=== PATIENT | male | born 1950 | race Two or more races ===

== ENCOUNTER 2019-09-19 13:13 | Inpatient (IN) | payer MEDICARE, OTHER ==
[~2019-09-19] VITALS: Ht 179.1 cm; Wt 99.8 kg
[2019-09-19 16:00] VITALS: BP 158/80
[2019-09-19] MEDS ORDERED: FURO20TA4 PO (16:00)
[2019-09-19] MEDS ORDERED: ISOS30TA6 PO (16:00)
[2019-09-19] MEDS ORDERED: GABA-532 PO (16:00)
[2019-09-19] MEDS ORDERED: ATOR80TA PO (16:00)
[2019-09-19] MEDS ORDERED: FLUT1BLS6 INH (16:00)
[2019-09-19] MEDS ORDERED: METO25TA4 PO (16:00)
[2019-09-19] MEDS ORDERED: ALBU18HF2 INH (16:00)
[2019-09-19] MEDS ORDERED: HYDR-4354 PO (16:00)
[2019-09-19] MEDS ORDERED: LISI-607 PO (16:00)
[2019-09-19] MEDS ORDERED: ASPI-1152 PO (16:00)
[2019-09-19] MEDS ORDERED: MAG HYDROX/AL HYDROX/SIMETH 30 ML UDC PO PRN (19:00)
[2019-09-19] MEDS ORDERED: Z GUARD REMEDY 2 OZ OINT TP PRN (19:00)
[2019-09-19] MEDS ORDERED: MAGNESIUM HYDROXIDE 30 ML UDC PO PRN (19:00)
[2019-09-19] MEDS ORDERED: ACETAMINOPHEN 325 MG TABLET PO PRN (19:00)
[2019-09-19] MEDS ORDERED: LORAZEPAM INJ 2 MG/ML VIAL IV PRN (19:00)
[2019-09-19] MEDS ORDERED: CLONIDINE HCL 0.1 MG TABLET PO PRN (19:00)
[2019-09-19] MEDS ORDERED: ONDANSETRON HCL/PF 4 MG/2 ML VIAL IVP PRN (19:00)
--- NOTE | 2019-09-19 19:05 | NUR ---
DISBURSING AGENT OPENING NOTES RECEIVED PATIENT IN BED NOTED RESTLESS, AGITATED, ALERT AND ORIENTED X 4, RESPIRATIONS EVEN AND UNLABORED WITH EQUAL RISE AND FALL OF CHEST, ORIENTED TO STAFF AND CALL LIGHT AND KEPT WITHIN REACH SITE TO LEFT HAND #22 G INTACT AND PATENT, NO REDNESS, NO INFILTRATION PRESENT, CURRENTLY SITTING IN CHAIR WATCHING HIS LAPTOP DISCUSSED PLAN OF CARE, ALL NEEDS ATTENDED AT THIS TIME, WILL CONTINUE TO MONITOR.
[2019-09-19 19:15] VITALS: BP 158/80
--- NOTE | 2019-09-19 19:30 | NUR ---
software development intern notes patient requesting for norco 10/325mg, at this norco had been held made patient aware, got very upset threatened states " im out of this place". patient is here for SI. made hospitalist leonard zee aware whom said patient is not allowed leave, if so call crisis team for hold placement. not allowed for norco prescription med seeker. needs medical clearance. per MD not allowed to leave AMA.
[2019-09-19 19:42] LABS: CALCIUM, SERUM 9.7 mg/dL (8.5-10.1); CREATININE 1.1 mg/dL (0.6-1.3); POTASSIUM 4.6 mmol/L (3.5-5.1)
[2019-09-19 19:48] LABS: ALBUMIN 3.6 g/dL (3.4-5.0); BILIRUBIN,TOTAL 0.4 mg/dL (0.2-1.0); MAGNESIUM 2.3 mg/dL (1.8-2.4); PHOSPHORUS 3.5 mg/dL (2.5-4.9); TOTAL PROTEIN, SERUM 7.4 g/dL (6.4-8.2)
--- NOTE | 2019-09-19 19:50 | NUR ---
BED OPERATOR NOTES CALLED CRISIS TEAM [facility]AL TO NOTIFY OF CONSULT.
[2019-09-19 20:00] VITALS: BP 147/75
[2019-09-19 20:16] LABS: BASOPHILS # (AUTO) 0.1 /CMM (0.0-0.2); BASOPHILS % (AUTO) 0.8 % (0.0-2.0); EOSINOPHILS % (AUTO) 4.4 % (0.0-6.0); HEMATOCRIT 45 % (39-51); HEMOGLOBIN 14.6 g/dL (13.5-17.5); LYMPHOCYTES # (AUTO) 2.8 /CMM (0.8-4.8); LYMPHOCYTES % (AUTO) 27.6 % (20.0-44.0); MEAN CORPUSCULAR HGB CONC 33 g/dl (31.0-36.0); MEAN CORPUSCULAR VOLUME 92 fL (80-96); MONOCYTES # (AUTO) 0.8 /CMM (0.1-1.30); MONOCYTES % (AUTO) 8.2 % (2.0-12.0); PLATELET COUNT (AUTO) 233 /CMM (150-450); RED BLOOD CELL COUNT(AUTO) 4.84 MIL/uL (4.5-6.0); WHITE BLOOD COUNT (AUTO) 10.2 K/uL (4.3-11.0)
--- NOTE | 2019-09-19 20:20 | NUR ---
ACID CONDITIONING WORKER NOTES CRYSTAL CRISIS TEAM COMMUNITY SERVICE PATROL OFFICER AT BEDSIDE.
--- NOTE | 2019-09-19 21:05 | NUR ---
risk intern notes patient strongly insisting he is in generalized pain ranging from 7-8 out of 10. noted restless and pacing in room throwing belongings. strongly requesting norco or threatening to leave. notified dr. gutierrez. with new order for norco 5/325mg q8hr prn, patient made aware and agreed. ekg done as ordered notified dr. gutierrez no new orders at this time.
--- NOTE | 2019-09-19 21:30 | NUR ---
corner brace block machine operator notes per aysha rn crisis program evaluator patient will need psych consult
--- NOTE | 2019-09-19 21:30 | NUR ---
yarn sorter notes patient was placed on a 5150 hold by crisis team aysha. start 09/19/19 at 2130 to end 09/22/19 at 2130 patient is aware. q 15 mins rendered, sitter at bedside.
[2019-09-19] MEDS: HYDROCODONE/APAP 5/325MG 1 EACH TABLET PO PRN (22:00)
[2019-09-19] MEDS: ATORVASTATIN 40 MG TABLET PO SCH (22:00)
--- NOTE | 2019-09-19 23:19 | NUR ---
rn private duty notes patient agreed to do mrsa swab , swab done placed in frig.
[2019-09-20 03:26] LABS: CALCIUM, SERUM 9.6 mg/dL (8.5-10.1); CARBON DIOXIDE 29 mmol/L (21-32); CHLORIDE 105 mmol/L (98-107); GLUCOSE 120 mg/dL (74-106); MAGNESIUM 2.4 mg/dL (1.8-2.4); PHOSPHORUS 3.8 mg/dL (2.5-4.9); POTASSIUM 4.7 mmol/L (3.5-5.1); SODIUM SERUM 139 mmol/L (136-145); UREA NITROGEN, BLOOD 22 mg/dL (7-18)
[2019-09-20 03:38] LABS: CHOLESTEROL 147 mg/dL (<200); HDL CHOLESTEROL 26 mg/dL (40-60); LDL 90 mg/dL (0-99); THYROID STIMULATING HORMONE < 0.007 uIU/mL (0.358-3.74); TRIGLYCERIDES 244 mg/dL (30-150)
[2019-09-20 03:56] LABS: BASOPHILS # (AUTO) 0.1 /CMM (0.0-0.2); BASOPHILS % (AUTO) 0.9 % (0.0-2.0); EOSINOPHILS % (AUTO) 4.7 % (0.0-6.0); HEMATOCRIT 43 % (39-51); HEMOGLOBIN 14.1 g/dL (13.5-17.5); LYMPHOCYTES # (AUTO) 2.8 /CMM (0.8-4.8); LYMPHOCYTES % (AUTO) 30.8 % (20.0-44.0); MEAN CORPUSCULAR HGB CONC 33 g/dl (31.0-36.0); MEAN CORPUSCULAR VOLUME 92 fL (80-96); MONOCYTES # (AUTO) 0.9 /CMM (0.1-1.30); MONOCYTES % (AUTO) 9.3 % (2.0-12.0); NEUTROPHILS % (AUTO) 54.3 % (43.0-81.0); PLATELET COUNT (AUTO) 199 /CMM (150-450); RED BLOOD CELL COUNT(AUTO) 4.67 MIL/uL (4.5-6.0); WHITE BLOOD COUNT (AUTO) 9.1 K/uL (4.3-11.0)
[2019-09-20 04:15] VITALS: BP 158/80
--- NOTE | 2019-09-20 06:47 | NUR ---
AUTOMOTIVE INTERNET SALES CONSULTANT CLOSING NOTES PATIENT IN BED NOTED SLEEPING EASILY AROUSABLE, ALERT AND ORIENTED X 4, HYPERVERBAL , EASILY AGITATED. RESPIRATIONS EVEN AND UNLABORED WITH EQUAL RISE AND FALL OF CHEST, CALL LIGHT KEPT WITHIN REACH SITE TO LEFT HAND #22 G INTACT AND PATENT, NO REDNESS, NO INFILTRATION PRESENT, DISCUSSED PLAN OF CARE UNDERSTANDS HE IS ON A 5150 HOLD, ALL NEEDS ATTENDED AT THIS TIME AND THROUGHOUT THE SHIFT, WILL CONTINUE TO MONITOR AND ENDORSE TO NEXT SHIFT.ON CARDIAC TELE MONITOR 73 VPACING, REMAINS COMFORTABLE.
--- NOTE | 2019-09-20 07:57 | NUR ---
ABAP DEVELOPER OPENING NOTE PATIENT IN BED RESTING COMFORTABLY, BUT EASILY AGITATED WHEN SPOKEN TO. PATIENT IN NO ACUTE DISTRESS. NO SOB NOTED. PATIENT BREATHING IS EVEN AND UNLABORED. PATIENT RESPONSIVE TO VERBAL AND TACTILE STIMULI. PATIENT ON CARDIAC MONITORING READING VPACING HR 69. SAFETY PRECAUTIONS IN PLACE. PATIENT BED IS LOCKED AND IN LOWEST POSITION. CALL LIGHT WITHIN REACH. WILL CONTINUE TO MONITOR.
[2019-09-20 08:00] VITALS: BP 168/70
[2019-09-20] MEDS: FUROSEMIDE 20 MG TABLET PO SCH (08:32)
[2019-09-20] MEDS: ISOSORBIDE MONONITRATE (30MG) 30 MG TAB.SR.24H PO SCH (08:32)
[2019-09-20] MEDS: PANTOPRAZOLE 40 MG TABLET.DR PO SCH (08:33)
[2019-09-20] MEDS: ASPIRIN EC 81 MG TABLET.DR PO SCH (08:33)
[2019-09-20] MEDS: LISINOPRIL (5MG) 5 MG TABLET PO SCH (08:33)
[2019-09-20] MEDS: GABAPENTIN 100 MG CAPSULE PO SCH ×3 (08:33→17:24)
[2019-09-20] MEDS ORDERED: METOPROLOL SUCCINATE 25 MG TAB.SR.24H PO SCH ×2 (09:00)
[2019-09-20] MEDS ORDERED: ALBUTEROL FS 2.5 MG/3 ML VIAL.NEB NEB PRN (09:00)
[2019-09-20] MEDS: HYDROCODONE/APAP 5/325MG 1 EACH TABLET PO PRN ×2 (10:08→20:13)
[2019-09-20] MEDS: METOPROLOL TARTRATE 50 MG TABLET PO SCH ×3 (12:18→23:38)
--- NOTE | 2019-09-20 13:10 | NUR ---
KELIN NOTE: KELIN reviewed pts chart and consulted with pts Wali CUNHA prior to conducting consult. SW conducted a social psychologist consult to assess the pts reported homeless status, and conduct a needs assessment. SW conducted the consult at bedside. Pts sitter/MEDIA RECONCILIATION SPECIALIST was present in the room. Pt was alert and oriented X4. Pt was pleasant and engaged. Pt reported he was transferred to [facility] from [facility] in [place], [place] after walking into their ER and reporting he felt like a threat to himself. SW inquired about pts crisis evaluation performed by on-call clinician oncology, ALPHONSE Rodarte. Per ALPHONSE Lund report, the pt was placed on a 5150 for DTS on 09/19/2019 and is pending medical clearance to be transferred to [facility]. Pt reported he is planning to be a little lucie, and hang out for his 72 hour hold. SW explained that he is pending medical clearance before he can be transferred to an inpatient psychiatric setting. Pt reported ongoing suicidal ideation. When SW inquired about a plan, pt stated, Why does everyone keep asking me that?! Theres like 5,000 ways to ! Pt denied homicidal ideation, denied AH/VH. Pt reported he was previously diagnosed with Depression, which he endorses. Pt reported he was recently started on Zoloft. Pt reported he has been intermittently homeless for about 4 days, and he was living in a motel in [place], and in his van prior to his hospitalization. Pt reported he is originally from [place] and lived in [place] for 10 years. Pt reported he is currently retired and receives social security benefits, approximately $1000/month, along with food stamps. Pt reported a history of drug and alcohol use, with a 17 year sobriety stretch. Pt reported he attended drug rehab approximately 15-19 years ago, not sure. SW provided the pt with community resources catered to the homeless population for both [place] and [place]. SW encouraged the pt to establish mental health care with an outpatient provider post-discharge and consider applying for section 8 housing in either county to find affordable and stable housing. Pt reported feeling frustration with the complexity of social psychologist and resources in the community. KELIN empathized with the pt and thanked him for his honesty. Pt reported feeling heard and validated. Pt will need to sign the Homeless Waiver upon discharge; endorsed to pts RN, Wali. director of managed services available for support as needed.
[2019-09-20] MEDS ORDERED: IV NS 0.9% 250 ML IV ONE ×2 (14:32→14:53)
[2019-09-20] MEDS ORDERED: IOHEXOL-350 100 ML VIAL IV ONE (14:32)
[2019-09-20] MEDS ORDERED: CT SWABBABLE VALVE TRANS SET 1 EA INFUS.SET MC ONE (14:32)
[2019-09-20] MEDS ORDERED: NITROGLYCERIN 0.4 MG/TAB BOTTLE ONE (14:52)
[2019-09-20] MEDS ORDERED: METOPROLOL TARTRATE INJ 5 MG/5 ML AMPUL ONE (14:53)
[2019-09-20] MEDS ORDERED: METOPROLOL TARTRATE INJ 5 MG/5 ML AMPUL IVP PRN (15:00)
[2019-09-20] MEDS ORDERED: NITROGLYCERIN 0.4 MG/TAB BOTTLE SL ONE (15:00)
--- NOTE | 2019-09-20 15:13 | NUR ---
POST CTA PROCEDURE DONE AND WELL TOLERATED BY THE PT. V/S STABLE, KEPT RESTED AND COMFORTABLE. WILL CONTINUE TO MONITOR.
[2019-09-20] MEDS ORDERED: IV NS 0.9% 250 ML BAG IV ONE (15:30)
[2019-09-20 16:00] VITALS: BP 109/57
--- NOTE | 2019-09-20 18:45 | NUR ---
VAMP PRESSER NOTE PATIENT MAINTAINED WITH 1:1 SITTER WITH VISUAL SAFETY CHECKS. PATIENT IN NO ACUTE DISTRESS.
--- NOTE | 2019-09-20 18:52 | NUR ---
CARTON FORMING MACHINE TENDER CLOSING NOTE PATIENT IN BED RESTING COMFORTABLY, BUT EASILY AGITATED WHEN SPOKEN TO. PATIENT IN NO ACUTE DISTRESS. NO SOB NOTED. PATIENT BREATHING IS EVEN AND UNLABORED. PATIENT RESPONSIVE TO VERBAL AND TACTILE STIMULI. PATIENT ON CARDIAC MONITORING READING AV PACING HR 86. SAFETY PRECAUTIONS IN PLACE. EXPLAINED ALL DUE MEDS TO PATIENT THROUGHOUT SHIFT. PATIENT KEPT CLEAN, DRY AND COMFORTABLE THROUGHOUT SHIFT. PATIENT BED IS LOCKED AND IN LOWEST POSITION. CALL LIGHT WITHIN REACH. WILL ENDORSE CARE TO PM SHIFT FOR RAMYA. Addendum: 09/20/19 at 1937 by MAKAYLA PANDYA RN CARTON FORMING MACHINE TENDER CLOSING NOTE PATIENT IN BED RESTING COMFORTABLY, BUT EASILY AGITATED WHEN SPOKEN TO. PATIENT IN NO ACUTE DISTRESS. NO SOB NOTED. PATIENT BREATHING IS EVEN AND UNLABORED. PATIENT RESPONSIVE TO VERBAL AND TACTILE STIMULI. PATIENT ON CARDIAC MONITORING READING AV PACING HR 86. SAFETY PRECAUTIONS IN PLACE. EXPLAINED ALL DUE MEDS TO PATIENT THROUGHOUT SHIFT. SAFETY CHECKS MADE THROUGHOUT SHIFT [id number]. PATIENT KEPT CLEAN, DRY AND COMFORTABLE THROUGHOUT SHIFT. NEEDS AND CONCERNS ADDRESSED. PATIENT BED IS LOCKED AND IN LOWEST POSITION. CALL LIGHT WITHIN REACH. WILL ENDORSE CARE TO PM SHIFT FOR RAMYA.
[2019-09-20 20:00] VITALS: BP 152/93
--- NOTE | 2019-09-20 20:10 | NUR ---
TELE/RN NOTES SINUS RHYTMN.
--- NOTE | 2019-09-20 20:14 | NUR ---
TELE/RN OPENING NOTES PATIENT REPORTED MODERATE PAIN GENERALIZED, NEEDED NORCO 5-325 MG PO REQUESTED, ALERT, ORIENTED X3, ABLE TO VERBALIZE NEEDS, SITTER AT BEDSIDE, DISCUSSED PLAN OF CARE, REPORTED NOT ABLE TO SLEEP LAST NIGHT, TO CONTINUE WITH PLAN OF CARE. RECEIVED ENDORSEMENT FROM AM RN FOR RAMYA.
--- NOTE | 2019-09-20 20:30 | NUR ---
TELE/RN NOTES AV PACING.
[2019-09-20] MEDS: ATORVASTATIN 40 MG TABLET PO SCH (23:38)
--- NOTE | 2019-09-21 | NUR ---
TELE/RN NOTES PATIENT OBSERVED SLEEPING COMFORTABLY IN BED. NO S/S OF DISTRESS NOTED, RESPIRATIONS EVEN AND UNLABORED, ON ROOM AIR.
[2019-09-21 04:00] VITALS: BP 149/70
[2019-09-21] MEDS: METOPROLOL TARTRATE 50 MG TABLET PO SCH ×4 (05:31→23:59)
--- NOTE | 2019-09-21 06:17 | NUR ---
327-2 TELE/RN NOTES ATTENDED TO ALL NEEDS, ABLE TO VERBALIZED NEEDS, SLEPT FEW HOURS. MONITORED. SLEPT AT LEAST 6 HOURS.
[2019-09-21 07:29] LABS: CALCIUM, SERUM 9.6 mg/dL (8.5-10.1); MAGNESIUM 2.4 mg/dL (1.8-2.4); PHOSPHORUS 3.9 mg/dL (2.5-4.9); POTASSIUM 4.5 mmol/L (3.5-5.1)
[2019-09-21 07:30] LABS: BASOPHILS # (AUTO) 0.1 /CMM (0.0-0.2); BASOPHILS % (AUTO) 1.1 % (0.0-2.0); EOSINOPHILS % (AUTO) 4.4 % (0.0-6.0); HEMATOCRIT 46 % (39-51); LYMPHOCYTES % (AUTO) 22.7 % (20.0-44.0); MEAN CORPUSCULAR HGB CONC 33 g/dl (31.0-36.0); MEAN CORPUSCULAR VOLUME 91 fL (80-96); MONOCYTES # (AUTO) 0.7 /CMM (0.1-1.30); NEUTROPHILS # (AUTO) 5.5 /CMM (1.8-8.9); NEUTROPHILS % (AUTO) 63.8 % (43.0-81.0); PLATELET COUNT (AUTO) 234 /CMM (150-450); WHITE BLOOD COUNT (AUTO) 8.6 K/uL (4.3-11.0)
[2019-09-21 07:41] LABS: THYROID STIMULATING HORMONE < 0.007 uIU/mL (0.358-3.74)
[2019-09-21] MEDS: PANTOPRAZOLE 40 MG TABLET.DR PO SCH (07:48)
[2019-09-21] MEDS: HYDROCODONE/APAP 5/325MG 1 EACH TABLET PO PRN ×2 (07:49→16:52)
--- NOTE | 2019-09-21 07:49 | NUR ---
RN NOTES RECEIVED PATIENT IN THE BED A/O X3, NO ACUTE RESPIRATORY DISTRESS, V/S TAKEN STABLE. PATIENT TELE AV PACING HR 77/78. PATIENT WAS COMPLAINING OF PAIN ON RIGHT LOWER LEG 8/10 PER PATIENT REQUEST,. PATIENT REFUSED SI/HI AT THIS TIME, BUT EMOTIONAL CRYING. IV ACCESS ON RIGHT FA INTACT, ADMINISTERED NARCO 5/325 MG/PO PRN PER PATIENT REQUEST. CALL LIGHT WITHIN TO REACH. 1:1 SITTER NEXT TO THE BED FOR SAFETY. CONTINUED MONITORING.
[2019-09-21 08:00] VITALS: BP 140/75
[2019-09-21] MEDS: LISINOPRIL (5MG) 5 MG TABLET PO SCH (08:50)
[2019-09-21] MEDS: GABAPENTIN 100 MG CAPSULE PO SCH ×3 (08:50→16:07)
[2019-09-21] MEDS: ASPIRIN EC 81 MG TABLET.DR PO SCH (08:50)
[2019-09-21] MEDS: FUROSEMIDE 20 MG TABLET PO SCH (08:50)
[2019-09-21] MEDS: ISOSORBIDE MONONITRATE (30MG) 30 MG TAB.SR.24H PO SCH (08:50)
--- NOTE | 2019-09-21 09:41 | NUR ---
rn notes per locomotive inspector order discharge tele for med/surge. Medication were administered for pain effective, also administered scheduled medication.
[2019-09-21 16:00] VITALS: BP 112/59
[2019-09-21] MEDS ORDERED: ALLA266C2 TP (16:00)
[2019-09-21] MEDS ORDERED: HYDR-3972 PO (16:00)
[2019-09-21] MEDS ORDERED: ONDA4VIA23 IVP (16:00)
[2019-09-21] MEDS ORDERED: MAGN400O6 PO (16:00)
[2019-09-21] MEDS ORDERED: PANT40TA2 PO (16:00)
[2019-09-21] MEDS ORDERED: CLON0.1T14 PO (16:00)
[2019-09-21] MEDS ORDERED: METO50TA16 PO (16:00)
[2019-09-21] MEDS ORDERED: ACET325T53 PO (16:00)
--- NOTE | 2019-09-21 16:52 | NUR ---
rn notes administered narco 5/325 mg po prn for right leg pain 10/08 per patient request, v/s taken bp 112/59, p-71.
--- NOTE | 2019-09-21 18:30 | NUR ---
RN NOTES PATIENT STABLE MEDICATION WERE ADMINISTERED FOR PAIN EFFECTIVE, PATIENT WILL TO D/C GPS, ENDORSED ONCOMING NURSE FOLLOW PLAN OF CARE.
--- NOTE | 2019-09-21 19:25 | NUR ---
MS RN NOTES RECEIVED PT IN BED AWAKE AND ABLE TO MAKE NEEDS KNOWN WITH SITTER AT BEDSIDE. PT A/O X3. NO COMPLAINTS OF PAIN AT THIS TIME. RESPIRATIONS EVEN AND UNLABORED WITH NO S/S OF ACUTE DISTRESS OR SOB NOTED. PT NOTED WITH RAC #18G PATENT AND INTACT AND SL. SAFETY MEASURES IN PLACE WITH BED IN LOWEST LOCKED POSITION WITH SIDE RAILS UP X2. CALL LIGHT WITHIN REACH. WILL CONTINUE TO MONITOR.
[2019-09-21 20:00] VITALS: BP 142/83
--- NOTE | 2019-09-21 21:00 | NUR ---
RN NOTES PT IS STAYING ON UNIT FOR ANOTHER NIGHT. NO BED AVAILABLE FOR GPS AT THIS TIME. WILL CONTINUE TO MONITOR.
[2019-09-21] MEDS: ATORVASTATIN 40 MG TABLET PO SCH (22:00)
[2019-09-22] MEDS: HYDROCODONE/APAP 5/325MG 1 EACH TABLET PO PRN ×2 (01:05→09:00)
[2019-09-22] MEDS: METOPROLOL TARTRATE 50 MG TABLET PO SCH ×2 (06:00→11:44)
--- NOTE | 2019-09-22 07:20 | NUR ---
MS RN NOTES PATIENT IN BED ALERT ORIENTED X 3. NO ACUTE DISTRESS NOTED. BREATHING UNLABORED. IV ACCESS PATENT AND INTACT, NO REDNESS, NO SWELLING NOTED. SAFETY MEASURES IN PLACE. SITTER AT BEDSIDE. WILL CONTINUE TO MONITOR ACCORDINGLY.
--- NOTE | 2019-09-22 07:36 | NUR ---
MS RN NOTES PT IN BED AWAKE AND ABLE TO MAKE NEEDS KNOWN WITH SITTER AT BEDSIDE. PT A/O X3. NO COMPLAINTS OF PAIN AT THIS TIME. RESPIRATIONS EVEN AND UNLABORED WITH NO S/S OF ACUTE DISTRESS OR SOB NOTED THROUGHOUT SHIFT. PT NOTED WITH RAC #18G PATENT AND INTACT AND SL. SAFETY MEASURES IN PLACE WITH BED IN LOWEST LOCKED POSITION WITH SIDE RAILS UP X2. CALL LIGHT WITHIN REACH. WILL ENDORSE TO ONCOMING NURSE FOR RAMYA.
[2019-09-22] MEDS: PANTOPRAZOLE 40 MG TABLET.DR PO SCH (07:47)
[2019-09-22] MEDS: FUROSEMIDE 20 MG TABLET PO SCH (09:50)
[2019-09-22] MEDS: GABAPENTIN 100 MG CAPSULE PO SCH (09:50)
[2019-09-22] MEDS: ASPIRIN EC 81 MG TABLET.DR PO SCH (09:50)
[2019-09-22] MEDS: ISOSORBIDE MONONITRATE (30MG) 30 MG TAB.SR.24H PO SCH (09:51)
[2019-09-22] MEDS: LISINOPRIL (5MG) 5 MG TABLET PO SCH (09:51)
[2019-09-22 11:44] VITALS: BP 139/76
--- NOTE | 2019-09-22 12:05 | NUR ---
MS MISSILE INSPECTOR NOTES PATIENT DISCHARGE TO [facility] WITH STABLE VITAL SIGNS, ALERT ORIENTED X 3. NO ACUTE DISTRESS NOTED. BREATHING UNLABORED. IV ACCESS REMOVED, NO REDNESS, NO SWELLING, NO BLEEDING NOTED. DISCHARGE INSTRUCTIONS GIVEN TO THE PATIENT, REPORT GIVEN TO TOMÁS CUNHA OF [facility]. ALL BELONGINGS ACCOUNTED FOR AND BROUGHT WITH THE PATIENT. REFUSED SKIN ASSESSMENT DESPITE OF EXPLANATION OF RISKS AND BENEFITS. WHEELED TO THE [facility] IN STABLE CONDITION.
[2019-09-22] MEDS ORDERED: NAPHAZOLINE HCL/PHENIR MAL 15 ML BOTTLE EACHEYE PRN (13:30)
[2019-09-23] MEDS ORDERED: METHIMAZOLE (5MG) 5 MG TABLET PO SCH (09:00)
== END 2019-09-22 12:10 | DRG 281 ==
LOC: MED 15:09 → TELE 16:05 → MED 09-21 12:07
PROVIDERS: ADMIT Registered Nurse; ATTEND Registered Nurse
DX: I21.4 Non-ST elevation (NSTEMI) myocardial infarction (principal); I50.32 Chronic diastolic (congestive) heart failure; R45.851 Suicidal ideations; F10.129 Alcohol abuse with intoxication, unspecified; I25.10 Atherosclerotic heart disease of native coronary artery without angina pectoris; D72.829 Elevated white blood cell count, unspecified; E86.0 Dehydration; I16.0 Hypertensive urgency; I11.0 Hypertensive heart disease with heart failure; Z95.5 Presence of coronary angioplasty implant and graft; Z95.0 Presence of cardiac pacemaker; Z91.19 Patient's noncompliance with other medical treatment and regimen; Z91.14 Patient's other noncompliance with medication regimen; Z87.891 Personal history of nicotine dependence; Z79.899 Other long term (current) drug therapy; Z79.82 Long term (current) use of aspirin; Z68.31 Body mass index [BMI] 31.0-31.9, adult; E66.9 Obesity, unspecified; J44.9 Chronic obstructive pulmonary disease, unspecified; Z59.0 Homelessness; G89.29 Other chronic pain; E05.90 Thyrotoxicosis, unspecified without thyrotoxic crisis or storm; F12.90 Cannabis use, unspecified, uncomplicated
CPT/HCPCS: 36415; 71045-TC; 75574; 80048-TC; 80053-TC; 80061-TC; 83520; 83735-TC; 84100-TC; 84439-TC; 84443-TC; 84481; 84484-TC; 85025-TC; 86376; 87081-TC; 93307-TC; 97116-TC; 97530-TC; G0378; J3490; J7050; Q9967

== ENCOUNTER 2019-09-22 11:16 | Inpatient (IN) | payer MEDICARE, OTHER ==
[~2019-09-22] VITALS: Ht 177.8 cm; Wt 97.1 kg
[~2019-09-22 11:16] MED LIST: ACET325T53 PO; ALBU18HF2 INH; ALLA266C2 TP; ASPI-1152 PO; ATOR80TA PO; CLON0.1T14 PO; FURO20TA4 PO; GABA-532 PO; HYDR-3972 PO; ISOS30TA6 PO; LISI-607 PO; MAGN400O6 PO; METO25TA4 PO; METO50TA16 PO; ONDA4VIA23 IVP; PANT40TA2 PO
--- NOTE | 2019-09-22 12:00 | NUR ---
GPS/RN RECEIVED PT FROM MS DIRECT ADMIT ON 5150. AMBULATORY NO SI OR HI ALL NEEDS ATTENDED AND ANTICIPATED. WILL CONTINUE TO MONITOR Q15MIN FOR SAFETY AND BEHAVIOR. DR VARMA IS AIN THE UNIT AND ASSESSE THE PT. PLACED BY DR VARMA ON 2140. PROPERTY CHECKED FOR CONTRABAND. NO SI OR HI AT THE TIME OF ADMISSION REPORTED BY THE PT
[2019-09-22 12:48] VITALS: BP 101/64
[2019-09-22] MEDS: GABAPENTIN 100 MG CAPSULE PO SCH ×2 (13:43→17:39)
[2019-09-22] MEDS ORDERED: MAG HYDROX/AL HYDROX/SIMETH 30 ML UDC PO PRN (14:30)
[2019-09-22] MEDS ORDERED: LORAZEPAM 0.5 MG TABLET PO PRN (14:30)
[2019-09-22] MEDS ORDERED: MAGNESIUM HYDROXIDE 30 ML UDC PO PRN (14:30)
[2019-09-22] MEDS ORDERED: BLOOD SUGAR DIAGNOSTIC 1 EACH STRIP IN ONE (14:30)
[2019-09-22 16:00] VITALS: BP 112/59
[2019-09-22] MEDS ORDERED: DULOXETINE HCL 30 MG CAPSULE.DR PO SCH (17:00)
--- NOTE | 2019-09-22 18:35 | NUR ---
GPS RN NOTES Patient requesting pain medication. Spoke with Jane PECK in regards to Med Recon at this time. Per , he will ask Arielle to follow up. Patient stated that he is starting to feel anxious. Will administer Ativan 0.5mg PO. Patient otherwise in stable condition. Will continue to monitor.
--- NOTE | 2019-09-22 19:35 | NUR ---
GPS RN OPENING NOTE RECEIVED PATIENT RESTING IN HIS BED, A & O X 3, HYPERVERBAL, EASILY AGITATED, NON-COMPLAINT WITH CARE/MEDS AT TIMES, BLUNTED AFFECT, ANXIOUS & RESTLESS AT TIMES, COOPERATIVE/UNCOOPERATIVE, AMBULATORY WITH WALKER, DENIES SI/HI AT THIS TIME. NO C/O PAIN VERBALIZED AT THIS TIME. CONTINENT OF B & BM. ENVIRONMENTAL SAFETY CHECKS DONE. BED IN LOW LOCKED POSITION. BED ALARM ON. WILL CONTINUE TO MONITOR Q15MIN FOR SAFETY, MOOD AND BEHAVIOR.
[2019-09-22 19:51] VITALS: BP 127/67
[2019-09-22 19:57] VITALS: BP 127/67
[2019-09-22] MEDS ORDERED: ALBUTEROL FS 2.5 MG/0.5 ML VIAL.NEB NEB PRN (20:30)
[2019-09-22] MEDS ORDERED: GABAPENTIN 100 MG CAPSULE PO SCH (20:30)
--- NOTE | 2019-09-22 21:30 | NUR ---
GPS RN NOTE PATIENT VERBALIZED RIGHT/LEFT SHOULDER PAIN & RIGHT LEG PAIN & REFUSED TO TAKE TYLENOL & WANTS TO TAKE NORCO ONLY. INFORMED INNA ALCALA & ORDERED NORCO. ORDER NOTED & CARRIED OUT. ONCE VERIFIED BY PHARMACY, WILL GIVE NORCO TO THE PATIENT.
[2019-09-22] MEDS: ATORVASTATIN 40 MG TABLET PO SCH (21:33)
[2019-09-22] MEDS: HYDROCODONE/APAP 5/325MG 1 EACH TABLET PO PRN (21:54)
--- NOTE | 2019-09-22 21:55 | NUR ---
PRN NORCO GIVEN-PAIN PATIENT VERBALIZED PAIN OF RIGHT/LEFT SHOULDER & RIGHT LEG 09/07, PATIENT REQUESTED TO GET NORCO ONLY, PRN NORCO 5/325 MG 1 TAB PO GIVEN. WILL CONTINUE TO MONITOR FOR EFFECTIVENESS.
[2019-09-22] MEDS: TEMAZEPAM 7.5 MG CAPSULE PO PRN (23:26)
--- NOTE | 2019-09-22 23:29 | NUR ---
GPS RN NOTE: INSOMNIA PATIENT VERBALIZED THAT HE IS UNABLE TO SLEEP & REQUESTED TO GET SLEEPING MEDICINE. PRN RESTORIL 7.5 MG 1 CAP PO GIVEN. WILL REASSESS FOR EFFECTIVENESS.
--- NOTE | 2019-09-23 00:24 | NUR ---
REFUSED METOPROLOL PATIENT REFUSED TO TAKE METOPROLOL SCHEDULED DESPITE OF RISKS & BENEFITS EXPLANATIONS, BP 115/70, 80, 18, 98, 96% @ RA. WILL MONITOR CLOSELY FOR ANY CHANGES.
[2019-09-23] MEDS: METOPROLOL TARTRATE 50 MG TABLET PO SCH ×4 (06:00→17:32)
[2019-09-23] MEDS: HYDROCODONE/APAP 5/325MG 1 EACH TABLET PO PRN ×3 (06:12→17:55)
--- NOTE | 2019-09-23 06:14 | NUR ---
PRN NORCO GIVEN-PAIN PATIENT VERBALIZED PAIN OF RIGHT/LEFT SHOULDER & RIGHT LEG 09/07, PATIENT REQUESTED TO GET NORCO ONLY AT THIS TIME, PRN NORCO 5/325 MG 1 TAB PO GIVEN. WILL CONTINUE TO MONITOR FOR EFFECTIVENESS.
--- NOTE | 2019-09-23 06:17 | NUR ---
REFUSED METOPROLOL PATIENT REFUSED TO TAKE METOPROLOL SCHEDULED, PATIENT WANTED TO TAKE NORCO ONLY AT THIS TIME. NORCO WAS GIVEN. DESPITE OF RISKS & BENEFITS EXPLANATIONS, PATIENT REFUSED METOPROLOL & IS AWARE THAT HE HAS ANOTHER BLOOD PRESSURE MEDICATIONS SCHEDULED AT 0900.
[2019-09-23 07:34] LABS: ALBUMIN 3.5 g/dL (3.4-5.0); BILIRUBIN,TOTAL 0.6 mg/dL (0.2-1.0); CALCIUM, SERUM 9.6 mg/dL (8.5-10.1); TOTAL PROTEIN, SERUM 7.5 g/dL (6.4-8.2)
[2019-09-23 08:00] VITALS: BP 138/82
[2019-09-23] MEDS: PANTOPRAZOLE 40 MG TABLET.DR PO SCH (08:21)
[2019-09-23] MEDS: GABAPENTIN 100 MG CAPSULE PO SCH ×3 (08:21→17:32)
[2019-09-23] MEDS: ISOSORBIDE MONONITRATE (30MG) 30 MG TAB.SR.24H PO SCH (08:22)
[2019-09-23] MEDS: FUROSEMIDE 20 MG TABLET PO SCH (08:22)
[2019-09-23] MEDS: ASPIRIN EC 81 MG TABLET.DR PO SCH (08:22)
[2019-09-23] MEDS: LISINOPRIL (5MG) 5 MG TABLET PO SCH (08:24)
[2019-09-23] MEDS ORDERED: METOPROLOL SUCCINATE 25 MG TAB.SR.24H PO SCH (09:00)
[2019-09-23] MEDS ORDERED: ALBUTEROL SULFATE INH 18 GM HFA.AER.AD IH SCH (09:00)
--- NOTE | 2019-09-23 13:18 | NUR ---
RN NOTE: PAIN PT C/O 10/08 LEFT SHOULDER AND RIGHT LEG PAIN. MEDICATED WITH NORCO PO PRN
[2019-09-23 16:00] VITALS: BP 100/79
[2019-09-23] MEDS: DULOXETINE HCL 30 MG CAPSULE.DR PO SCH (17:32)
[2019-09-23 20:00] VITALS: BP 120/70
[2019-09-23 20:32] VITALS: BP 120/70
[2019-09-23] MEDS ORDERED: ATORVASTATIN 40 MG TABLET ONE (21:49)
[2019-09-23] MEDS: ATORVASTATIN 40 MG TABLET PO SCH (21:57)
[2019-09-24] MEDS: HYDROCODONE/APAP 5/325MG 1 EACH TABLET PO PRN ×4 (00:25→20:40)
--- NOTE | 2019-09-24 00:28 | NUR ---
RN NOTE: PAIN PATIENT VERBALIZED LEFT SHOULDER PAIN 6/10 & REQUESTED TO TAKE NORCO. PRN NORCO 5/325 MG 1 TAB PO GIVEN.
--- NOTE | 2019-09-24 00:32 | NUR ---
GPS RN NOTE: REFUSED METOPROLOL PATIENT REFUSED TO TAKE METOPROLOL SCHEDULED DESPITE OF RISKS & BENEFITS EXPLANATIONS, BP 126/73, 72, 18, 98.2, 93% @ RA. WILL MONITOR CLOSELY FOR ANY CHANGES.
[2019-09-24] MEDS: TEMAZEPAM 7.5 MG CAPSULE PO PRN ×2 (01:25→22:19)
--- NOTE | 2019-09-24 01:25 | NUR ---
GPS RN NOTE: INSOMNIA PATIENT IS AWAKE & STATED THAT HE IS UNABLE TO SLEEP & REQUESTED TO GET SLEEPING MEDICINE. PRN RESTORIL 7.5 MG 1 CAP PO GIVEN.
[2019-09-24] MEDS: METOPROLOL TARTRATE 50 MG TABLET PO SCH ×4 (06:12→18:00)
[2019-09-24 08:00] VITALS: BP 111/79
[2019-09-24] MEDS: FUROSEMIDE 20 MG TABLET PO SCH (08:04)
[2019-09-24] MEDS: ASPIRIN EC 81 MG TABLET.DR PO SCH (08:04)
[2019-09-24] MEDS: GABAPENTIN 100 MG CAPSULE PO SCH ×4 (08:04→21:55)
[2019-09-24] MEDS: PANTOPRAZOLE 40 MG TABLET.DR PO SCH (08:04)
[2019-09-24] MEDS: LISINOPRIL (5MG) 5 MG TABLET PO SCH (08:05)
[2019-09-24] MEDS: ISOSORBIDE MONONITRATE (30MG) 30 MG TAB.SR.24H PO SCH (08:05)
--- NOTE | 2019-09-24 08:06 | NUR ---
RN PAIN: PAIN PT C/O 10/08 SHOULDER PAIN. MED WITH NORCO PRN
--- NOTE | 2019-09-24 13:37 | NUR ---
RN NOTE: PAIN PT C/O 10/08 LEFT SHOULDER AND RIGHT LEG PAIN. MEDICATED WITH NORCO 5/325 MG PO PRN
[2019-09-24 16:00] VITALS: BP 105/63
[2019-09-24] MEDS: DULOXETINE HCL 30 MG CAPSULE.DR PO SCH (17:19)
[2019-09-24 20:00] VITALS: BP 119/79
[2019-09-24 20:16] VITALS: BP 119/79
--- NOTE | 2019-09-24 20:47 | NUR ---
GPS RN NOTE: PAIN PATIENT VERBALIZED LEFT/RIGHT SHOULDER & RIGHT LEG PAIN 09/07 & REQUESTED TO TAKE NORCO. PRN NORCO 5/325 MG 1 TAB PO GIVEN. VITALS STABLE. WILL CONTINUE TO MONITOR FOR ANY CHANGES.
[2019-09-24] MEDS: ATORVASTATIN 40 MG TABLET PO SCH (21:55)
[2019-09-24] MEDS ORDERED: GABAPENTIN 100 MG CAPSULE PO SCH (22:00)
--- NOTE | 2019-09-24 22:20 | NUR ---
GPS RN NOTE: INSOMNIA PATIENT IS AWAKE & STATED THAT HE IS UNABLE TO SLEEP & REQUESTED TO GET SLEEPING MEDICINE. PRN RESTORIL 7.5 MG 1 CAP PO GIVEN. WILL CONTINUE TO MONITOR.
--- NOTE | 2019-09-25 00:37 | NUR ---
GPS RN NOTE: REFUSED METOPROLOL PATIENT REFUSED TO TAKE METOPROLOL SCHEDULED DESPITE OF RISKS & BENEFIT EXPLANATIONS. PATIENT ALSO REFUSED VITALS TO BE CHECKED AT THIS TIME.. WILL CONTINUE TO MONITOR FOR ANY CHANGES.
[2019-09-25] MEDS: METOPROLOL TARTRATE 50 MG TABLET PO SCH ×4 (06:15→17:33)
[2019-09-25] MEDS: PANTOPRAZOLE 40 MG TABLET.DR PO SCH (07:32)
[2019-09-25 08:00] VITALS: BP 143/84
[2019-09-25] MEDS: GABAPENTIN 100 MG CAPSULE PO SCH ×4 (08:28→21:09)
[2019-09-25] MEDS: ASPIRIN EC 81 MG TABLET.DR PO SCH (08:28)
[2019-09-25] MEDS: FUROSEMIDE 20 MG TABLET PO SCH (08:29)
[2019-09-25] MEDS: ISOSORBIDE MONONITRATE (30MG) 30 MG TAB.SR.24H PO SCH (08:29)
[2019-09-25] MEDS: LISINOPRIL (5MG) 5 MG TABLET PO SCH (08:29)
[2019-09-25] MEDS: HYDROCODONE/APAP 5/325MG 1 EACH TABLET PO PRN ×3 (08:30→17:33)
--- NOTE | 2019-09-25 08:30 | NUR ---
RN NOTE: PAIN PT C/O 10/08 LEFT SHOULDER PAIN. MEDICATED WITH NORCO 5/325 PO PRN
[2019-09-25] MEDS: METHIMAZOLE (5MG) 5 MG TABLET PO SCH (08:32)
--- NOTE | 2019-09-25 10:50 | NUR ---
Initial Discharge Plan: Pt is currently homeless and in need of placement. Per pt, he would like to be discharged to a facility. SW will work with the pt and the MD regarding appropriate discharge planning. SW will form a safe and proper discharge.
--- NOTE | 2019-09-25 13:02 | NUR ---
RN NOTE: PAIN PT C/O 10/08 PAIN RIGHT SHOULDER. MEDICATED WITH NORCO 5/325 PO PRN
[2019-09-25 16:00] VITALS: BP 103/75
[2019-09-25] MEDS: DULOXETINE HCL 30 MG CAPSULE.DR PO SCH (17:32)
--- NOTE | 2019-09-25 17:34 | NUR ---
RN NOTE: PAIN PT C/O 10/08 LEFT SHOULDER PAIN. MED WITH NORCO 5/325 PO PRN.
[2019-09-25 20:19] VITALS: BP 125/68
[2019-09-25] MEDS ORDERED: ALBUTEROL SULFATE INH 18 GM HFA.AER.AD INH PRN (21:00)
[2019-09-25] MEDS: ATORVASTATIN 40 MG TABLET PO SCH (21:09)
[2019-09-25] MEDS: ACETAMINOPHEN 325 MG TABLET PO PRN (21:09)
--- NOTE | 2019-09-25 21:11 | NUR ---
GPS RN NOTES: SHOULDER PAIN PT C/O OF SHOULDER PAIN. OFFERED TYLENOL 650 MG PO PRN ORDERED. PT AGREED AND TOLERATED MEDICATION WELL. CONTINUE TO MONITOR.
[2019-09-25] MEDS: TEMAZEPAM 7.5 MG CAPSULE PO PRN (22:00)
--- NOTE | 2019-09-25 22:01 | NUR ---
GPS RN NOTES: INSOMNIA PT C/O UNABLE TO SLEEP. PT REQUESTED SLEEPING MEDICATION. VITALS WNL. NO RESP DISTRESS. OFFERED RESTORIL 7.5 MG PO PRN ORDERED. PT AGREED AND TOLERATED MEDICATION WELL. CONTINUE TO MONITOR
--- NOTE | 2019-09-26 00:14 | NUR ---
GPS RN NOTES: PT ASLEEP UPON DOING ROUNDS, PT ASLEEP. NONE ADMINISTERED LOPRESSOR DUE AT 0000. PT STATED TO BE LEFT ALONE IF HE IS ASLEEP. NO S/S RESP DISTRESS. BREATHING EVEN AND UNLABORED. CONTINUE TO MONITOR.
[2019-09-26] MEDS: METOPROLOL TARTRATE 50 MG TABLET PO SCH ×5 (06:34→23:33)
[2019-09-26 08:00] VITALS: BP 135/77
[2019-09-26] MEDS: GABAPENTIN 100 MG CAPSULE PO SCH ×4 (08:00→21:14)
[2019-09-26] MEDS: ISOSORBIDE MONONITRATE (30MG) 30 MG TAB.SR.24H PO SCH (08:00)
[2019-09-26] MEDS: PANTOPRAZOLE 40 MG TABLET.DR PO SCH (08:01)
[2019-09-26] MEDS: METHIMAZOLE (5MG) 5 MG TABLET PO SCH (08:01)
[2019-09-26] MEDS: ASPIRIN EC 81 MG TABLET.DR PO SCH (08:01)
[2019-09-26] MEDS: FUROSEMIDE 20 MG TABLET PO SCH (08:01)
[2019-09-26] MEDS: LISINOPRIL (5MG) 5 MG TABLET PO SCH (08:01)
[2019-09-26] MEDS: HYDROCODONE/APAP 5/325MG 1 EACH TABLET PO PRN ×3 (08:02→17:36)
--- NOTE | 2019-09-26 08:02 | NUR ---
RN NOTE: PAIN PT C/O 10/08 RIGHT SHOULDER PAIN. REQUESTING NORCO PRN. NORCO 5/325 MG PO PRN ADMINISTERED
[2019-09-26] MEDS: FLUTICASONE/VILANTEROL 1 EACH BLST.W.DEV IH SCH (09:56)
--- NOTE | 2019-09-26 12:07 | NUR ---
SNF Referral: KELIN faxed a referral to [facility] with attention to RUSLAN and Nima to the fax number: [phone].
--- NOTE | 2019-09-26 13:00 | NUR ---
RN NOTE: PAIN PT C/O 10/08 SHOULDER AND LEG PAIN. MEDICATED WITH NORCO PRN
--- NOTE | 2019-09-26 13:39 | NUR ---
SNF Contact: Calvin ([phone]) from [facility] and RUSLAN ([phone]) from [facility] contacted the SW and stated that the pt was accepted to their facilities.
--- NOTE | 2019-09-26 15:31 | NUR ---
GROUP NOTE: Group Topic: Depression SW invited patient to attend group, patient refused to join at this time wanted to stay in his room.
[2019-09-26 16:00] VITALS: BP 95/53
[2019-09-26] MEDS: DULOXETINE HCL 30 MG CAPSULE.DR PO SCH (17:17)
--- NOTE | 2019-09-26 17:37 | NUR ---
RN NOTE: PAIN PT C/O 8 SHOULDEER AND LEG PAIN. MEDICATED WITH NORCO PRN
[2019-09-26 19:59] VITALS: BP 102/50
[2019-09-26] MEDS: ATORVASTATIN 40 MG TABLET PO SCH (21:13)
[2019-09-26] MEDS: ACETAMINOPHEN 325 MG TABLET PO PRN (22:08)
--- NOTE | 2019-09-26 22:08 | NUR ---
GPS RN NOTE: PAIN PT. C/O OF GENERALIZED PAIN. ADMINISTERED TYLENOL 650 MG PO PRN ORDERED. WILL CONTINUE TO MONITOR FOR SAFETY AND BEHAVIOR
[2019-09-26] MEDS: TEMAZEPAM 7.5 MG CAPSULE PO PRN (22:09)
--- NOTE | 2019-09-26 22:09 | NUR ---
GPS RN NOTE: INSOMNIA PT. C/O UNABLE TO SLEEP. ADMINISTERED RESTORIL 7.5 MG PO PRN ORDERED. WILL CONTINUE TO MONITOR FOR SAFETY AND BEHAVIOR
--- NOTE | 2019-09-26 23:34 | NUR ---
GPS RN NOTE: PT ASLEEP. LOPRESSOR NOT ADMINISTERED DUE AT 0000. PT STATED TO NOT BE WAKEN UP. NO S/S RESP DISTRESS. BREATHING EVEN AND UNLABORED. WILL CONTINUE TO MONITOR.
[2019-09-27] MEDS: HYDROCODONE/APAP 5/325MG 1 EACH TABLET PO PRN ×4 (06:12→20:37)
--- NOTE | 2019-09-27 06:14 | NUR ---
GPS RN NOTE: PAIN PT. C/O OF GENERALIZED PAIN 10/08. ADMINISTERED NORCO 5-325 PO PRN ORDERED. WILL CONTINUE TO MONITOR FOR SAFETY AND BEHAVIOR
[2019-09-27] MEDS: METOPROLOL TARTRATE 50 MG TABLET PO SCH ×3 (06:50→17:28)
[2019-09-27 08:00] VITALS: BP 122/70
[2019-09-27] MEDS: ASPIRIN EC 81 MG TABLET.DR PO SCH (08:20)
[2019-09-27] MEDS: PANTOPRAZOLE 40 MG TABLET.DR PO SCH (08:20)
[2019-09-27] MEDS: ISOSORBIDE MONONITRATE (30MG) 30 MG TAB.SR.24H PO SCH (08:20)
[2019-09-27] MEDS: FUROSEMIDE 20 MG TABLET PO SCH (08:21)
[2019-09-27] MEDS: GABAPENTIN 100 MG CAPSULE PO SCH ×4 (08:21→21:08)
[2019-09-27] MEDS: LISINOPRIL (5MG) 5 MG TABLET PO SCH (08:21)
[2019-09-27] MEDS: FLUTICASONE/VILANTEROL 1 EACH BLST.W.DEV IH SCH (08:24)
[2019-09-27] MEDS: METHIMAZOLE (5MG) 5 MG TABLET PO SCH (08:24)
--- NOTE | 2019-09-27 11:07 | NUR ---
patient complying about right shoulder pain, PRN [place] is given, will cont to monitor
--- NOTE | 2019-09-27 15:39 | NUR ---
patient complained of severe pain in his shoulder and leg, states his pain level is 8/10, will administer PRN pain medication [place]
--- NOTE | 2019-09-27 15:49 | NUR ---
Group Note: SW encouraged the pt to attend group therapy on 09/27/19 on the topic of discharge planning. Pt refused to attend and stated that he wanted to continue napping. SW stated that he was accepted to a nursing facility and that once he is stable for discharge he will go back. He stated that was acceptable.
[2019-09-27 16:00] VITALS: BP 105/57
[2019-09-27] MEDS: DULOXETINE HCL 30 MG CAPSULE.DR PO SCH (17:04)
[2019-09-27 19:41] VITALS: BP 105/77
--- NOTE | 2019-09-27 20:38 | NUR ---
GPS RN NOTE: PAIN PT COMPLAINED OF 8 PAIN STATED "I NEED MY NORCO SOON I CAN GET IT". ADMINISTERED PRN NORCO 5/325MG PO TAB. WILL REASSESS AND CONTINUE TO MONITOR Q15MIN FOR SAFETY AND BEHAVIOR.
[2019-09-27] MEDS: ATORVASTATIN 40 MG TABLET PO SCH (21:08)
[2019-09-27 21:41] VITALS: BP 118/68
[2019-09-27] MEDS: TEMAZEPAM 7.5 MG CAPSULE PO PRN (21:43)
--- NOTE | 2019-09-27 21:48 | NUR ---
GPS RN NOTE:INSOMNIA PT WAS COMPLAINING OF INSOMNIA AND INABILITY TO SLEEP STATED "I CAN'T SLEEP, CAN HAVE MY RESTORIL". VITALS SIGNS STABLE, ADMINISTERED PRN RESTORIL PRN @ 2143 WILL REASSESS IN ONE HOUR AND CONTINUE TO MONITOR Q15 MIN FOR SAFETY AND BEHAVIOR.
[2019-09-28] MEDS: METOPROLOL TARTRATE 50 MG TABLET PO SCH ×4 (06:00→17:05)
[2019-09-28] MEDS: HYDROCODONE/APAP 5/325MG 1 EACH TABLET PO PRN ×4 (06:07→20:38)
--- NOTE | 2019-09-28 06:08 | NUR ---
GPS RN NOTE: PAIN PT COMPLAINED OF 8/10 PAIN, REQUESTED NORCO. ADMINISTERED NORCO PRN @0607. VITAL SIGNS STABLE, BP: 108/57. WILL REASSESS AND CONTINUE TO MONITOR Q15 MIN FOR SAFETY AND BEHAVIOR.
[2019-09-28 08:28] VITALS: BP 136/68
[2019-09-28] MEDS: FUROSEMIDE 20 MG TABLET PO SCH (08:57)
[2019-09-28] MEDS: LISINOPRIL (5MG) 5 MG TABLET PO SCH (08:57)
[2019-09-28] MEDS: ASPIRIN EC 81 MG TABLET.DR PO SCH (08:57)
[2019-09-28] MEDS: FLUTICASONE/VILANTEROL 1 EACH BLST.W.DEV IH SCH (08:57)
[2019-09-28] MEDS: GABAPENTIN 100 MG CAPSULE PO SCH ×3 (08:57→17:04)
[2019-09-28] MEDS: ISOSORBIDE MONONITRATE (30MG) 30 MG TAB.SR.24H PO SCH (08:57)
[2019-09-28] MEDS: PANTOPRAZOLE 40 MG TABLET.DR PO SCH (08:57)
[2019-09-28] MEDS: METHIMAZOLE (5MG) 5 MG TABLET PO SCH (08:58)
--- NOTE | 2019-09-28 14:22 | NUR ---
GROUP NOTE: Topic: Adapting to our environment. Patient presented calm and pleasant upon approach. Patient shared that he enjoys being in the hospital because it is like a "get away from all the negativity". Patient shared mostly about watching the news daily and it impacting his feelings for the rest of the day. medicine worker provided active listening, motivational interviewing, and reflected patient's thoughts and feelings.
[2019-09-28 16:00] VITALS: BP 100/59
[2019-09-28] MEDS: DULOXETINE HCL 30 MG CAPSULE.DR PO SCH (17:04)
[2019-09-28] MEDS ORDERED: GABAPENTIN 100 MG CAPSULE PO SCH (20:00)
[2019-09-28 20:18] VITALS: BP 107/63
--- NOTE | 2019-09-28 20:39 | NUR ---
RN NOTES : PAIN PT C/O 10/08 PAIN STATED "I NEED MY NORCO SOON I CAN GET IT". ADMINISTERED PRN NORCO 5/325MG PO 1 TAB. WILL CONTINUE TO MONITOR.
[2019-09-28] MEDS: ATORVASTATIN 40 MG TABLET PO SCH (21:10)
--- NOTE | 2019-09-29 00:03 | NUR ---
RN NOTE: REFUSED METOPROLOL PATIENT REFUSED TO TAKE METOPROLOL 50 MG PO, SCHEDULED DESPITE OF RISKS & BENEFIT EXPLANATIONS. BUT PT. STRONGLY REFUSED, WILL CONTINUE TO MONITOR .
[2019-09-29] MEDS: ACETAMINOPHEN 325 MG TABLET PO PRN (02:14)
--- NOTE | 2019-09-29 02:15 | NUR ---
GPS RN NOTE: PAIN PT. C/O OF GENERALIZED PAIN. ADMINISTERED TYLENOL 650 MG PO PRN ORDERED. WILL CONTINUE TO MONITOR FOR THE EFFECTIVENESS OF MEDICATION.
[2019-09-29] MEDS: METOPROLOL TARTRATE 50 MG TABLET PO SCH ×4 (06:00→17:04)
[2019-09-29] MEDS: HYDROCODONE/APAP 5/325MG 1 EACH TABLET PO PRN ×4 (06:05→20:08)
--- NOTE | 2019-09-29 06:07 | NUR ---
RN NOTE: REFUSED METOPROLOL PATIENT REFUSED TO TAKE METOPROLOL 50 MG PO, SCHEDULED ,DESPITE OF RISKS & BENEFIT EXPLANATIONS. BUT PT. STRONGLY REFUSED, WILL CONTINUE TO MONITOR .
--- NOTE | 2019-09-29 06:08 | NUR ---
RN NOTES : PAIN PT C/O 10/08 PAIN STATED . ADMINISTERED PRN NORCO 5/325MG PO 1 TAB. VITAL SIGNS WNL,WILL CONTINUE TO MONITOR.
[2019-09-29 08:00] VITALS: BP 126/63
[2019-09-29] MEDS: PANTOPRAZOLE 40 MG TABLET.DR PO SCH (08:24)
[2019-09-29] MEDS: METHIMAZOLE (5MG) 5 MG TABLET PO SCH (08:24)
[2019-09-29] MEDS: GABAPENTIN 100 MG CAPSULE PO SCH ×3 (08:24→16:08)
[2019-09-29] MEDS: ISOSORBIDE MONONITRATE (30MG) 30 MG TAB.SR.24H PO SCH (08:25)
[2019-09-29] MEDS: FUROSEMIDE 20 MG TABLET PO SCH (08:25)
[2019-09-29] MEDS: LISINOPRIL (5MG) 5 MG TABLET PO SCH (08:26)
[2019-09-29] MEDS: ASPIRIN EC 81 MG TABLET.DR PO SCH (08:26)
[2019-09-29] MEDS: FLUTICASONE/VILANTEROL 1 EACH BLST.W.DEV IH SCH (08:27)
--- NOTE | 2019-09-29 15:09 | NUR ---
GROUP NOTE: Topic: Learning coping skills. nozzle and sleeve worker attempted to invite patient to participate in group. Patient was asleep at this time and unable to attend.
[2019-09-29 16:00] VITALS: BP 123/50
[2019-09-29] MEDS: DULOXETINE HCL 30 MG CAPSULE.DR PO SCH (16:08)
[2019-09-29] MEDS: GABAPENTIN 300 MG CAPSULE PO SCH (19:26)
--- NOTE | 2019-09-29 20:09 | NUR ---
RN NOTES : PAIN PT C/O 10/08 PAIN STATED "I NEED MY PAIN PILL RIGHT NOW , VITAL SIGNS WNL,. ADMINISTERED PRN NORCO 5/325MG PO 1 TAB. WILL CONTINUE TO MONITOR.
[2019-09-29 21:13] VITALS: BP 136/80
[2019-09-29] MEDS: ATORVASTATIN 40 MG TABLET PO SCH (21:22)
[2019-09-29] MEDS: TEMAZEPAM 7.5 MG CAPSULE PO PRN (22:19)
--- NOTE | 2019-09-29 22:21 | NUR ---
RN NOTES: INSOMNIA PT. C/O INSOMNIA , RESTORIL 7.5 MG PO PRN GIVEN PER PT. REQUEST, VITAL SIGNS WNL,WILL CONTINUE TO MONITOR.
[2019-09-29 22:22] VITALS: BP 123/74
[2019-09-30 00:36] VITALS: BP 121/76
[2019-09-30] MEDS: METOPROLOL TARTRATE 50 MG TABLET PO SCH ×4 (00:36→17:20)
[2019-09-30 06:00] VITALS: BP 130/73
[2019-09-30] MEDS: HYDROCODONE/APAP 5/325MG 1 EACH TABLET PO PRN ×5 (06:01→22:14)
--- NOTE | 2019-09-30 06:07 | NUR ---
RN NOTES: PAIN PATIENT VERBALIZED C/O GENERALIZED BODY PAIN 09/07, PATIENT REQUESTED TO GET NORCO AT THIS TIME, PRN NORCO 5/325 MG 1 TAB PO GIVEN. WILL CONTINUE TO MONITOR FOR EFFECTIVENESS.
[2019-09-30 06:48] VITALS: BP 110/63
--- NOTE | 2019-09-30 07:19 | NUR ---
PS RN NOTE NO BEHAVIOR PROBLEMS NOTED. NO ACUTE DISTRESS NOTED. WILL CONTINUE TO MONITOR FOR SAFETY AND BEHAVIOR .
--- NOTE | 2019-09-30 07:19 | NUR ---
GPS RN NOTE NO BEHAVIOR PROBLEMS NOTED. NO ACUTE DISTRESS NOTED. WILL CONTINUE TO MONITOR FOR SAFETY AND BEHAVIOR .
[2019-09-30] MEDS: FLUTICASONE/VILANTEROL 1 EACH BLST.W.DEV IH SCH (07:56)
[2019-09-30 08:00] VITALS: BP 111/59
[2019-09-30] MEDS: GABAPENTIN 100 MG CAPSULE PO SCH ×3 (08:12→16:52)
[2019-09-30] MEDS: ASPIRIN EC 81 MG TABLET.DR PO SCH (08:14)
[2019-09-30] MEDS: PANTOPRAZOLE 40 MG TABLET.DR PO SCH (08:14)
[2019-09-30] MEDS: METHIMAZOLE (5MG) 5 MG TABLET PO SCH (08:14)
[2019-09-30] MEDS: ISOSORBIDE MONONITRATE (30MG) 30 MG TAB.SR.24H PO SCH (08:15)
[2019-09-30] MEDS: LISINOPRIL (5MG) 5 MG TABLET PO SCH (08:15)
[2019-09-30] MEDS: FUROSEMIDE 20 MG TABLET PO SCH (08:15)
[2019-09-30 16:00] VITALS: BP 125/75
[2019-09-30] MEDS: DULOXETINE HCL 30 MG CAPSULE.DR PO SCH (16:52)
[2019-09-30] MEDS: GABAPENTIN 300 MG CAPSULE PO SCH (20:23)
[2019-09-30 21:00] VITALS: BP 140/83
[2019-09-30] MEDS: ATORVASTATIN 40 MG TABLET PO SCH (21:06)
--- NOTE | 2019-09-30 22:14 | NUR ---
GPS RN NOTE: C/O PAIN PATIENT C/O GENERALIZED BODY PAIN ON A PAIN SCALE OF 7/10. ADMINISTERED NORCO 5/325MG PO ORDERED. WILL CONTINUE TO MONITOR FOR THE EFFECTIVENESS OF MEDICATION.
[2019-10-01] MEDS: METOPROLOL TARTRATE 50 MG TABLET PO SCH ×5 (00:12→23:01)
[2019-10-01] MEDS: HYDROCODONE/APAP 5/325MG 1 EACH TABLET PO PRN ×4 (06:05→21:00)
--- NOTE | 2019-10-01 06:06 | NUR ---
GPS RN NOTE: GENERALIZED PAIN PATIENT C/O GENERALIZED BODY PAIN ON A PAIN SCALE OF 7/10. ADMINISTERED NORCO 5/325MG PO ORDERED PER PT'S REQUEST. WILL CONTINUE TO MONITOR FOR THE EFFECTIVENESS OF MEDICATION.
[2019-10-01 08:00] VITALS: BP 124/60
[2019-10-01] MEDS: ISOSORBIDE MONONITRATE (30MG) 30 MG TAB.SR.24H PO SCH (08:27)
[2019-10-01] MEDS: ASPIRIN EC 81 MG TABLET.DR PO SCH (08:27)
[2019-10-01] MEDS: GABAPENTIN 100 MG CAPSULE PO SCH ×3 (08:27→17:40)
[2019-10-01] MEDS: FUROSEMIDE 20 MG TABLET PO SCH (08:27)
[2019-10-01] MEDS: PANTOPRAZOLE 40 MG TABLET.DR PO SCH (08:27)
[2019-10-01] MEDS: LISINOPRIL (5MG) 5 MG TABLET PO SCH (08:28)
[2019-10-01] MEDS: FLUTICASONE/VILANTEROL 1 EACH BLST.W.DEV IH SCH (08:28)
[2019-10-01] MEDS: METHIMAZOLE (5MG) 5 MG TABLET PO SCH (08:40)
[2019-10-01 15:53] VITALS: BP 104/68
[2019-10-01] MEDS: DULOXETINE HCL 30 MG CAPSULE.DR PO SCH (17:40)
[2019-10-01 19:59] VITALS: BP 129/67
[2019-10-01] MEDS: GABAPENTIN 300 MG CAPSULE PO SCH (20:04)
[2019-10-01 20:58] VITALS: BP 129/65
--- NOTE | 2019-10-01 21:03 | NUR ---
GPS RN NOTE: GENERALIZED PAIN PATIENT C/O LEFT AND RIGHT SHOULDER PAIN ON A PAIN SCALE OF 7/10. VITALS CHEKCED WNL. NO SOB. ADMINISTERED NORCO 5/325MG PO ORDERED PER PT'S REQUEST. WILL CONTINUE TO MONITOR FOR THE EFFECTIVENESS OF MEDICATION.
[2019-10-01 22:28] VITALS: BP 119/60
[2019-10-01] MEDS: ATORVASTATIN 40 MG TABLET PO SCH (22:31)
[2019-10-01] MEDS: TEMAZEPAM 7.5 MG CAPSULE PO PRN (22:32)
--- NOTE | 2019-10-01 22:35 | NUR ---
RN NOTES: INSOMNIA PT. C/O INSOMNIA VITALS TAKEN WNL. NO SOB. NO RESP DISTRESS. RESTORIL 7.5 MG PO PRN GIVEN PER PATIENT REQUEST. WILL CONTINUE TO MONITOR.
--- NOTE | 2019-10-01 23:02 | NUR ---
GPS RN NOTES: REFUSED LOPRESSOR PT REFUSED LOPRESSOR DUE AT 0000. PT STATED HE WANTS TO BE LEFT ALONE IF HE IS ASLEEP. EXPLAIN RISKS AND BENEFITS. PT STILL REFUSED X3. NO S/S RESP DISTRESS. BREATHING EVEN AND UNLABORED. CONTINUE TO MONITOR.
[2019-10-02] MEDS: METOPROLOL TARTRATE 50 MG TABLET PO SCH ×3 (06:00→17:09)
--- NOTE | 2019-10-02 06:00 | NUR ---
GPS RN NOTES: REFUSED LOPRESSOR PT REFUSED LOPRESSOR DUE AT 0600. EXPLAIN RISKS AND BENEFITS. PT STILL REFUSED X3. NO S/S RESP DISTRESS. BREATHING EVEN AND UNLABORED. CONTINUE TO MONITOR.
[2019-10-02] MEDS: HYDROCODONE/APAP 5/325MG 1 EACH TABLET PO PRN ×4 (06:15→19:33)
--- NOTE | 2019-10-02 06:20 | NUR ---
GPS RN NOTE: SHOULDER PAIN PATIENT C/O LEFT AND RIGHT SHOULDER PAIN ON A PAIN SCALE OF 7/10. VITALS CHEKCED WNL. NO SOB. ADMINISTERED NORCO 5/325MG PO ORDERED PER PT'S REQUEST. WILL CONTINUE TO MONITOR FOR THE EFFECTIVENESS OF MEDICATION.
[2019-10-02 07:05] LABS: BASOPHILS # (AUTO) 0.1 /CMM (0.0-0.2); EOSINOPHILS % (AUTO) 7.9 % (0.0-6.0); HEMATOCRIT 45 % (39-51); HEMOGLOBIN 15.1 g/dL (13.5-17.5); LYMPHOCYTES # (AUTO) 2.2 /CMM (0.8-4.8); LYMPHOCYTES % (AUTO) 27.9 % (20.0-44.0); MEAN CORPUSCULAR HGB CONC 33 g/dl (31.0-36.0); MEAN CORPUSCULAR VOLUME 91 fL (80-96); MONOCYTES # (AUTO) 0.6 /CMM (0.1-1.30); MONOCYTES % (AUTO) 7.1 % (2.0-12.0); NEUTROPHILS # (AUTO) 4.5 /CMM (1.8-8.9); NEUTROPHILS % (AUTO) 56.1 % (43.0-81.0); PLATELET COUNT (AUTO) 321 /CMM (150-450); RED BLOOD CELL COUNT(AUTO) 5.01 MIL/uL (4.5-6.0)
[2019-10-02 08:00] VITALS: BP 142/85
[2019-10-02] MEDS: GABAPENTIN 100 MG CAPSULE PO SCH ×3 (08:21→16:40)
[2019-10-02] MEDS: PANTOPRAZOLE 40 MG TABLET.DR PO SCH (08:21)
[2019-10-02] MEDS: FLUTICASONE/VILANTEROL 1 EACH BLST.W.DEV IH SCH (08:21)
[2019-10-02] MEDS: ASPIRIN EC 81 MG TABLET.DR PO SCH (08:21)
[2019-10-02] MEDS: METHIMAZOLE (5MG) 5 MG TABLET PO SCH (08:22)
[2019-10-02] MEDS: LISINOPRIL (5MG) 5 MG TABLET PO SCH (08:22)
[2019-10-02] MEDS: FUROSEMIDE 20 MG TABLET PO SCH (08:22)
[2019-10-02] MEDS: ISOSORBIDE MONONITRATE (30MG) 30 MG TAB.SR.24H PO SCH (08:22)
--- NOTE | 2019-10-02 10:17 | NUR ---
RN NOTE: PAIN PT C/O 10/08 BILAT SHOULDER PAIN. REQUESTING NORCO. NORCO 5/325 PO PRN ADMINISTERED
--- NOTE | 2019-10-02 14:32 | NUR ---
RN NOTE: PAIN PT C/O 10/08 RIGHT LOWER LEG AND BILAT SHOULDER PAIN. REQUESTING NORCO. MEDICATED WITH NORCO 5/325 PO PRN.
--- NOTE | 2019-10-02 15:31 | NUR ---
Group Note: SW invited patient to participate in group therapy to discuss the topic of Problem Solving. Patient presents with euthymic mood and congruent affect. Patient shared that he feels "a lot of positive changed since last week". 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 SW provided active listening and acknowledged patient's feelings and emotions.
[2019-10-02 16:00] VITALS: BP 101/59
[2019-10-02] MEDS: DULOXETINE HCL 30 MG CAPSULE.DR PO SCH (16:40)
--- NOTE | 2019-10-02 19:33 | NUR ---
GPS RN NOTE: PAIN PATIENT C/O RIGHT LEG PAIN 09/07, REQUESTED TO GET NORCO AT THIS TIME. PRN NORCO 5/325 MG PO GIVEN ORDERED. WILL CONTINUE TO MONITOR FOR ANY CHANGES.
[2019-10-02 19:59] VITALS: BP 105/67
[2019-10-02 20:00] VITALS: BP 105/67
[2019-10-02] MEDS: GABAPENTIN 300 MG CAPSULE PO SCH (20:35)
[2019-10-02] MEDS: ATORVASTATIN 40 MG TABLET PO SCH (21:09)
[2019-10-02] MEDS: TEMAZEPAM 7.5 MG CAPSULE PO PRN (22:11)
--- NOTE | 2019-10-02 22:11 | NUR ---
GPS RN NOTE: INSOMNIA PATIENT STATED HE IS UNABLE TO SLEEP & REQUESTED TO GET SLEEPING MEDICINE. PRN RESTORIL 7.5 MG PO GIVEN ORDERED. WILL CONTINUE TO MONITOR FOR ANY CHANGES.
--- NOTE | 2019-10-03 00:09 | NUR ---
GPS RN NOTES: REFUSED LOPRESSOR PT REFUSED LOPRESSOR DUE AT 0000. EXPLAIN RISKS AND BENEFITS. PT STILL REFUSED X3. NO S/S RESP DISTRESS. BREATHING EVEN AND UNLABORED. CONTINUE TO MONITOR.
[2019-10-03] MEDS: HYDROCODONE/APAP 5/325MG 1 EACH TABLET PO PRN ×5 (05:50→22:30)
--- NOTE | 2019-10-03 05:50 | NUR ---
GPS RN NOTE: PAIN PATIENT C/O RIGHT LEG PAIN 08/08, REQUESTED TO GET NORCO, PRN NORCO GIVEN ORDERED. WILL MONITOR FOR EFFECTIVENESS.
[2019-10-03] MEDS: METOPROLOL TARTRATE 50 MG TABLET PO SCH ×4 (06:00→17:16)
--- NOTE | 2019-10-03 06:05 | NUR ---
GPS RN NOTES: REFUSED LOPRESSOR PT REFUSED LOPRESSOR DUE AT 0600. EXPLAIN RISKS AND BENEFITS. PT STILL REFUSED X3. NO S/S OF RESP DISTRESS VERBALIZED. BREATHING EVEN AND UNLABORED. AMBULATORY WITH WALKER/STEADY. WILL CONTINUE TO MONITOR.
[2019-10-03 08:00] VITALS: BP 137/70
[2019-10-03] MEDS: GABAPENTIN 100 MG CAPSULE PO SCH ×3 (08:40→16:50)
[2019-10-03] MEDS: LISINOPRIL (5MG) 5 MG TABLET PO SCH (08:40)
[2019-10-03] MEDS: PANTOPRAZOLE 40 MG TABLET.DR PO SCH (08:40)
[2019-10-03] MEDS: ASPIRIN EC 81 MG TABLET.DR PO SCH (08:40)
[2019-10-03] MEDS: ISOSORBIDE MONONITRATE (30MG) 30 MG TAB.SR.24H PO SCH (08:41)
[2019-10-03] MEDS: FUROSEMIDE 20 MG TABLET PO SCH (08:41)
[2019-10-03] MEDS: METHIMAZOLE (5MG) 5 MG TABLET PO SCH (08:44)
[2019-10-03] MEDS: FLUTICASONE/VILANTEROL 1 EACH BLST.W.DEV IH SCH (08:44)
--- NOTE | 2019-10-03 15:49 | NUR ---
Group Note: SW encouraged pt to attend group therapy on 10/03/19 on the topic of discharge planning. Pt refused to attend the group but stated that he is aware that he is being discharged the following day. Pt stated that he is content about being discharged to a facility where he will receive some help. Pt stated that he knows that he cannot continue to be homeless and living out of his car.
[2019-10-03 16:00] VITALS: BP 96/63
[2019-10-03] MEDS: DULOXETINE HCL 30 MG CAPSULE.DR PO SCH (16:50)
[2019-10-03 19:51] VITALS: BP 100/63
[2019-10-03] MEDS: GABAPENTIN 300 MG CAPSULE PO SCH (20:07)
[2019-10-03] MEDS: ATORVASTATIN 40 MG TABLET PO SCH (22:27)
[2019-10-04] MEDS: TEMAZEPAM 7.5 MG CAPSULE PO PRN (00:23)
--- NOTE | 2019-10-04 03:55 | NUR ---
GPS RN NOTE: PT REFUSED 0000 METOPROLOL 50MG 1 TAB PO ORDERED. PT BP 118/64, P 65. PT ASKED FOR SLEEP MEDICATION FOR INSOMNIA, RESTORIL 7.5MG 1 TAB GIVEN PO ORDERED. NO BEHAVIORAL ISSUES. PT IS CURRENTLY SLEEPING. WILL CONTINUE TO MONITOR.
[2019-10-04] MEDS: HYDROCODONE/APAP 5/325MG 1 EACH TABLET PO PRN ×3 (06:12→14:50)
[2019-10-04] MEDS: METOPROLOL TARTRATE 50 MG TABLET PO SCH ×3 (06:14→13:41)
[2019-10-04 08:00] VITALS: BP 136/67
--- NOTE | 2019-10-04 09:16 | NUR ---
Discharge Note: Pt was discharged to [facility] ([facility]) located at [address] [place] [address]; ([phone]). Pt was transported via [facility] at 11AM. Pt is homeless and does not have anyone for the to contact regarding the pts discharge. Pts mood appeared to be euthymic with a congruent affect. Pt denied visual/auditory hallucinations and denied suicidal/homicidal ideation. Pt appeared to be alert and oriented x4 (time, place, self and situation). Pt appeared to be ambulatory with the assistance of a walker, well-groomed and appropriately dressed. Pt will be under the care of his psychiatrist, Dr. Pastor, located at [address] [address]; and his supervisor locomotive, Dr. Britton, located at [address] [place] [address]; . The multidisciplinary exit care form was done, printed, signed, and given to the patient. Pt signed the homeless waiver and was given resources including shelters, food adair, showers, hot meals, mental health clinics, health clinics and substance abuse referrals.
[2019-10-04] MEDS: FUROSEMIDE 20 MG TABLET PO SCH (09:29)
[2019-10-04] MEDS: ASPIRIN EC 81 MG TABLET.DR PO SCH (09:29)
[2019-10-04] MEDS: ISOSORBIDE MONONITRATE (30MG) 30 MG TAB.SR.24H PO SCH (09:30)
[2019-10-04] MEDS: LISINOPRIL (5MG) 5 MG TABLET PO SCH (09:30)
[2019-10-04] MEDS: GABAPENTIN 100 MG CAPSULE PO SCH ×2 (09:30→13:38)
[2019-10-04] MEDS: PANTOPRAZOLE 40 MG TABLET.DR PO SCH (09:31)
[2019-10-04] MEDS: METHIMAZOLE (5MG) 5 MG TABLET PO SCH (09:32)
[2019-10-04] MEDS: FLUTICASONE/VILANTEROL 1 EACH BLST.W.DEV IH SCH (09:32)
--- NOTE | 2019-10-04 10:49 | NUR ---
RN NOTE:PATIENT MEDICATED WITH NORCO 5/325 FOR PAIN WILL CONTINUE TO MONITOR .
[2019-10-04] MEDS ORDERED: LIDOCAINE 1%-EPI 1:100,000 20 ML VIAL TP ONE (11:00)
--- NOTE | 2019-10-04 11:15 | NUR ---
Group Note: SW encouraged pt to participate in group on the topic of dealing with anxiety. Patient was asleep at that time and did not participate.
--- NOTE | 2019-10-04 11:23 | NUR ---
RN-CO: ERROR IN PUTTING LIDOCAINE ORDER. MEANT FOR OTHER PATIENT.
[2019-10-04 13:41] VITALS: BP 117/72
--- NOTE | 2019-10-04 14:50 | NUR ---
RN NOTE:PATIENT MEDICATED WITH NORCO 5/325 FOR PAIN WILL CONTINUE TO MONITOR
--- NOTE | 2019-10-04 15:10 | NUR ---
RN NOTE: Patient alert ,verbally responsive ,denies si/hi/avh .med compliant ,no c/o pain ,no s/s of acute distress noted seen by dr. isaac and matt arnp with discharge orders .report given to darshan corrigan in [facility] .All belongings returned to patient Patient discharged at 15:10 with ambulance .
== END 2019-10-04 15:10 | DRG 885 ==
LOC: GPS 11:16 → UNDODISIN 12:10 → GPS 09-27 17:25
PROVIDERS: ADMIT Psychiatry & Neurology Psychosomatic Medicine; ATTEND Internal Medicine
DX: F33.2 Major depressive disorder, recurrent severe without psychotic features (principal); I11.0 Hypertensive heart disease with heart failure; I50.32 Chronic diastolic (congestive) heart failure; R45.851 Suicidal ideations; E86.0 Dehydration; E66.9 Obesity, unspecified; I16.0 Hypertensive urgency; F41.9 Anxiety disorder, unspecified; Z91.14 Patient's other noncompliance with medication regimen; Z95.0 Presence of cardiac pacemaker; E05.90 Thyrotoxicosis, unspecified without thyrotoxic crisis or storm; G89.29 Other chronic pain; I25.10 Atherosclerotic heart disease of native coronary artery without angina pectoris; J44.9 Chronic obstructive pulmonary disease, unspecified; Z59.0 Homelessness; Z95.5 Presence of coronary angioplasty implant and graft; Z68.30 Body mass index [BMI] 30.0-30.9, adult; F10.129 Alcohol abuse with intoxication, unspecified; Y90.9 Presence of alcohol in blood, level not specified; Z91.5 Personal history of self-harm
CPT/HCPCS: 36415; 80053-TC; 80061-TC; 84439-TC; 84443-TC; 85025-TC; 87081-TC; J3490